=== PATIENT | male | born 1965 | race Caucasian/White ===

== ENCOUNTER 2017-10-13 06:58 | Day surgery (SDC) | payer OTHER ==
[~2017-10-13 06:58] MED LIST: Lidocaine 2% 5 ML SDV ONE; Propofol 200 MG/20 ML SDV ONE; fentaNYL 100 MCG/2 ML SDV ONE
--- NOTE | 2017-10-13 07:42 | PCM.PREANE ---
Preanesthetic Assessment - Anesthesia/Transfusion/Family Hx Anesthesia History: Prior Anesthesia Reaction Type of Anesthesia Reaction: Excessive Nausea/Vomiting Other Type of Anesthesia Reaction Comment: N&V, slow to wake Family History of Anesthesia Reaction: No Transfusion History: No Prior Transfusion(s) - Review of Systems General: No Symptoms Pulmonary: No Symptoms Cardiovascular: No Symptoms Gastrointestinal: No Symptoms Neurological: No Symptoms Other: Reports: None - Physical Assessment NPO Status Date: 10/12/17 O2 Sat by Pulse Oximetry: 96 Respiratory Rate: 16 Vital Signs: Last Vital Signs Temp 36.2 C 10/13/17 07:10 Pulse 55 L 10/13/17 07:10 Resp 16 10/13/17 07:10 BP 116/75 10/13/17 07:10 Pulse Ox 96 10/13/17 07:10 Height: 1.8 m Weight: 115.666 kg ASA Class: 2 Mental Status: Alert & Oriented x3 Airway Class: Mallampati = 1 Dentition: Reports: Normal Dentition ROM/Head Extension: Full Lungs: Clear to Auscultation, Normal Respiratory Effort Cardiovascular: Regular Rate, Regular Rhythm - Lab Values: Laboratory Last Values POC Glucose 125 mg/dL (60-110) H 10/13/17 07:22 - Allergies Allergies/Adverse Reactions: Allergies Allergy/AdvReac Type Severity Reaction Status Date / Time hydrocodone bitartrate Allergy Itching Verified 10/10/17 14:15 [From Lortab] tapentadol [From Nucynta] Allergy Rash Verified 10/10/17 14:15 tree nut Allergy Anaphylactic Verified 10/10/17 14:27 Shock - Acknowledgements Anesthesia Type Planned: MAC Pt an Appropriate Candidate for the Planned Anesthesia: Yes Alternatives and Risks of Anesthesia Discussed w Pt/Guardian: Yes Pt/Guardian Understands and Agrees with Anesthesia Plan: Yes Additional Comments: PMH: DM@, on insulin, [id number], HTN, HLD, PLAN: MAC PreAnesthesia Questionnaire Cardiovascular History: Reports: High Cholesterol, Hypertension Respiratory History: Reports: Asthma, Other (See Below) Other Respiratory History: allergy induced asthma (denies using inhaler) Genitourinary History: Musculoskeletal History: Reports: Fracture Neurological History: Reports: None Endocrine/Metabolic History: Reports: Diabetes, Type II, Obesity/BMI 30+ - Past Surgical History Head Surgeries/Procedures: Reports: None Neurological Surgical History: Reports: Lumbar Spine Other Neurological Surgeries/Procedures: hx back surgery Musculoskeletal Surgical History: Reports: Shoulder Surgery, Other (See Below) Other Musculoskeletal Surgeries/Procedures:: surgical tx of fx rt wrist, shoulder surgery - SUBSTANCE USE Smoking Status *Q: Never Smoker Recreational Drug Use History: No - HOME MEDS Home Medications: Home Meds Aspirin [Satinder Chewable Aspirin] 81 mg PO QAM 03/22/14 [History] atorvaSTATin [Lipitor] 80 mg PO BEDTIME 03/22/14 [History] metFORMIN [Glucophage] 1,000 mg PO BID 03/22/14 [History] Canagliflozin [Invokana] 300 mg PO DAILY 10/10/17 [History] Dextrose [Glucose] 1 tab.chew CHEW ASDIRECTED PRN 10/10/17 [History] EPINEPHrine [Epipen] 1 injection SUBCUT ASDIRECTED PRN 10/10/17 [History] Insulin Glarg,Human.Rec.Analog [Lantus Solostar] 50 units SUBCUT BID 10/10/17 [ History] Insulin Lispro [Humalog Kwikpen U-100] 15 units SUBCUT TIDMEALS 10/10/17 [ History] Multivitamin [Multivitamins] 1 tab PO DAILY 10/10/17 [History] Sildenafil Citrate [Sildenafil] 100 mg PO ASDIRECTED PRN 10/10/17 [History] amLODIPine Besylate/Benazepril [Amlodipine-Benazepril 10-20 MG] 1 tab PO DAILY 10/10/17 [History] traZODone HCl [Trazodone HCl] 0.5 tab PO BEDTIME PRN 10/10/17 [History] - CURRENT (IN HOUSE) MEDS Current Meds: Current Medications Lactated Ringer's (Ringers, Lactated) 1,000 mls @ 100 mls/hr IV ASDIRECTED KASI Discontinued Medications Fentanyl (Sublimaze) Confirm Administered Dose 100 mcg .ROUTE .STK-MED ONE Stop: 10/13/17 06:58 Lidocaine (Xylocaine-Mpf 2%) Confirm Administered Dose 5 ml .ROUTE .STK-MED ONE Stop: 10/13/17 06:58 Propofol (Diprivan 20 Ml) Confirm Administered Dose 400 mg .ROUTE .STK-MED ONE Stop: 10/13/17 06:58
[2017-10-13] MEDS ORDERED: Lactated Ringers 1,000 ML IV SCH ×2 (07:45→09:15)
[2017-10-13] MEDS ORDERED: Glycopyrrolate 0.2 MG/ML SDV ONE (08:37)
--- NOTE | 2017-10-13 09:04 | PCM.OPNOTE ---
- General Post-Op/Procedure Note Date of Surgery/Procedure: 10/13/17 Operative Procedure(s): Colonoscopy Pre Op Diagnosis: Desire for colorectal cancer screening Post-Op Diagnosis: No evidence of neoplasia Anesthesia Technique: MAC (ASA III) Primary Surgeon: Rashel Hickey Condition: Good Free Text/Narrative:: DICTATION [id number] CPT CODE 11625
--- NOTE | 2017-10-13 09:24 | PCM.POSTAN ---
POST ANESTHESIA ASSESSMENT - MENTAL STATUS Mental Status: Alert, Oriented - RESPIRATORY Respiratory Status: Respiratory Rate WNL, Airway Patent, O2 Saturation Stable - CARDIOVASCULAR CV Status: Pulse Rate WNL, Blood Pressure Stable - GASTROINTESTINAL GI Status: No Symptoms - PAIN Pain Score: 0 - POST OP HYDRATION Hydration Status: Adequate & Stable
--- NOTE | 2017-10-13 09:32 | PCM48HPAN ---
Post Anesthesia Note - EVALUATION WITHIN 48HRS OF ANESTHETIC Vital Signs in Normal Range: Yes Patient Participated in Evaluation: Yes Respiratory Function Stable: Yes Airway Patent: Yes Cardiovascular Function Stable: Yes Hydration Status Stable: Yes Pain Control Satisfactory: Yes Nausea and Vomiting Control Satisfactory: Yes Mental Status Recovered: Yes Resp Rate: 12
--- NOTE | 2017-10-13 09:36 | OR ---
SURGEON: Rashel Hickey M.D. DATE OF PROCEDURE: 10/13/2017 OPERATION PERFORMED: Colonoscopy. ANESTHESIA: MAC. [place] [employer] CLASSIFICATION: III. PREOPERATIVE DIAGNOSIS: Desire for colorectal cancer screening. POSTOPERATIVE DIAGNOSIS: No evidence of neoplasia. DESCRIPTION OF PROCEDURE: The patient was taken to the endoscopy room, positioned on the endoscopy table in the left lateral decubitus position. Time-out was called for appropriate identification of the patient and procedure. Monitored anesthesia care was provided. The colonoscope was inserted into the rectum and advanced with minimal difficulty to the cecum, where the colonoscope was retroflexed to visualize the ascending colon from below. The colonoscope was then straightened and slowly withdrawn. The cecum, ascending colon, hepatic flexure, transverse colon, splenic flexure, descending colon, sigmoid colon, and rectum were very well visualized. No tumors, polyps, diverticula, or angiodysplastic changes were noted. There was no evidence of inflammatory bowel disease. Once the colonoscope was withdrawn to the rectum, it was retroflexed to visualize the anal orifice from above. Again, no tumors or polyps were seen, and there were no acute hemorrhoidal changes. The colonoscope was then straightened, the rectum aspirated, and the colonoscope removed. The patient tolerated the procedure well and was taken to the recovery room in stable condition. PADDY ZENG /[id number]
== END 2017-10-13 09:50 | disposition home or self-care (01) ==
LOC: MW.SDS 06:58
PROVIDERS: ATTEND Surgery
DX: Z12.11 Encounter for screening for malignant neoplasm of colon (principal); J30.9 Allergic rhinitis, unspecified; I10 Essential (primary) hypertension; E11.9 Type 2 diabetes mellitus without complications; E78.00 Pure hypercholesterolemia, unspecified; E78.5 Hyperlipidemia, unspecified; E66.9 Obesity, unspecified; Z68.35 Body mass index [BMI] 35.0-35.9, adult; Z79.4 Long term (current) use of insulin; Z79.82 Long term (current) use of aspirin; Z79.899 Other long term (current) drug therapy; Z88.5 Allergy status to narcotic agent; Z91.048 Other nonmedicinal substance allergy status
CPT/HCPCS: 45378; 82962; J3010; J7120; J2704

== ENCOUNTER 2018-09-22 19:12 | Emergency (ER) | payer OTHER ==
[2018-09-22] MEDS ORDERED: Ketorolac 60 MG/2 ML SDV IM ONE (19:30)
--- NOTE | 2018-09-22 19:34 | EDM.PDOC ---
ED HPI GENERAL MEDICAL PROBLEM - General Chief Complaint: Back Pain or Injury Stated Complaint: HURT BACK Time Seen by Provider: 09/22/18 19:31 Source of Information: Reports: Patient - History of Present Illness INITIAL COMMENTS - FREE TEXT/NARRATIVE: HISTORY AND PHYSICAL: History of present illness: Patient presents with low back pain for 1 week, he has a history of low back pain approximately 16 years ago. Describes a procedure which sounds like epidural steroid injection or PEDRO/ IDET he states "they injected some medicine into my spine which decreased swelling of the disc " he is unsure of the exact procedure that occurred. Was performed 16 years prior in [facility]. No surgical scar is apparent. On Monday he had stepped in hole knee is been having trouble with ambulation or any movement since at rest pain is tolerable 2 out of 10 with any movement pain becomes unbearable required help to move about his house, did have to chiropractic adjustments one on Monday and again on or Monday which seems to have increased symptoms initially symptoms were better as the day went on symptoms were worse No footdrop saddle anesthesia or bowel or urine symptoms Review of systems: As per history of present illness and below otherwise all systems reviewed and negative. Past medical history: As per history of present illness and as reviewed below otherwise noncontributory. Surgical history: As per history of present illness and as reviewed below otherwise noncontributory. Social history: No reported history of drug or alcohol abuse. Family history: As per history of present illness and as reviewed below otherwise noncontributory. Physical exam: HEENT: Atraumatic, normocephalic, pupils reactive, negative for conjunctival pallor or scleral icterus, mucous membranes moist, throat clear, neck supple, nontender, trachea midline. Lungs: Clear to auscultation, breath sounds equal bilaterally, chest nontender. Heart: S1S2, regular, negative for clicks, rubs, or JVD. Abdomen: Soft, nondistended, nontender. Negative for masses or hepatosplenomegaly. Negative for costovertebral tenderness. Pelvis: Stable nontender. Genitourinary: Deferred. Rectal: Deferred. Extremities: Atraumatic, negative for cords or calf pain. Neurovascular unremarkable. Neuro: Awake, alert, oriented. Cranial nerves II through XII unremarkable. Cerebellum unremarkable. Motor and sensory unremarkable throughout. Exam nonfocal. Diagnostics: L- spine 3 views ] Therapeutics: [Toradol Norflex [place] severe pain Eat ice whichever gains most benefit Toradol Flexeri Work and office position as tolerated with Toradol only no driving on [place] or Flexeril l Lobe with primary care as scheduled for further restriction eval and treatment as needed ] Impression: [Low back pain Chronic history of low back pain with prior procedures] Definitive disposition and diagnosis as appropriate pending reevaluation and review of above. back Pain Score (Numeric/FACES): 4 - Related Data Allergies Allergy/AdvReac Type Severity Reaction Status Date / Time hydrocodone bitartrate Allergy Itching Verified 10/10/17 14:15 [From Lortab] tapentadol [From Nucynta] Allergy Rash Verified 10/10/17 14:15 tree nut Allergy Anaphylactic Verified 10/10/17 14:27 Shock Home Meds: Home Meds Ascorbate Calcium [Vitamin C] 500 mg PO DAILY 09/22/18 [History] Aspirin [Halfprin] 81 mg PO DAILY 09/22/18 [History] Canagliflozin [Invokana] 300 mg PO DAILY 09/22/18 [History] Cyanocobalamin (Vitamin B-12) [Vitamin B-12] 500 mcg PO DAILY 09/22/18 [History] Insulin Glarg,Human.Rec.Analog [Lantus Solostar] 50 units SUBCUT BID 09/22/18 [ History] amLODIPine Besylate/Benazepril [Amlodipine-Benazepril 10-20 MG] 10 mg PO DAILY 09/22/18 [History] atorvaSTATin [Lipitor] 80 mg PO DAILY 09/22/18 [History] metFORMIN HCl [Metformin HCl] 1,000 mg PO BID 09/22/18 [History] Past Medical History Cardiovascular History: Reports: High Cholesterol, Hypertension Respiratory History: Reports: Asthma, Other (See Below) Other Respiratory History: allergy induced asthma (denies using inhaler) Genitourinary History: Musculoskeletal History: Reports: Fracture Neurological History: Reports: None Psychiatric History: Reports: Depression Endocrine/Metabolic History: Reports: Diabetes, Type II, Obesity/BMI 30+ - Past Surgical History Head Surgeries/Procedures: Reports: None Neurological Surgical History: Reports: Lumbar Spine Other Neurological Surgeries/Procedures: hx back surgery Musculoskeletal Surgical History: Reports: Shoulder Surgery, Other (See Below) Other Musculoskeletal Surgeries/Procedures:: surgical tx of fx rt wrist, shoulder surgery, back surgery Social & Family History - Family History Family Medical History: Noncontributory - Tobacco Use Smoking Status *Q: Never Smoker - Recreational Drug Use Recreational Drug Use: No ED ROS GENERAL - Review of Systems Review Of Systems: See Below ED EXAM, GENERAL - Physical Exam Exam: See Below Course - Vital Signs Last Recorded V/S: Last Vital Signs Temp 97.1 F 09/22/18 19:23 Pulse 80 09/22/18 19:23 Resp 18 09/22/18 19:23 BP 165/86 H 09/22/18 19:23 Pulse Ox 94 L 09/22/18 19:23 - Orders/Labs/Meds Orders: Active Orders 24 hr Category Date Time Status Lumbar Spine 2 or 3V [CR] Stat Exams 09/22/18 19:31 Taken Orphenadrine [Norflex] Med 09/22/18 19:45 Active 60 mg IM Q12H Medication Orders Orphenadrine Citrate (Norflex) 60 mg IM Q12H KASI Last Admin: 09/22/18 19:41 Dose: 60 mg Meds: Medications Generic Name Dose Route Start Last Admin Trade Name Freq PRN Reason Stop Dose Admin Orphenadrine Citrate 60 mg 09/22/18 19:45 09/22/18 19:41 Norflex IM 60 mg Q12H KASI Administration Discontinued Medications Generic Name Dose Route Start Last Admin Trade Name Freq PRN Reason Stop Dose Admin Ketorolac Tromethamine 60 mg 09/22/18 19:30 09/22/18 19:38 Toradol IM 09/22/18 19:31 60 mg ONETIME ONE Administration Departure - Departure Time of Disposition: 20:39 Disposition: Home, Self-Care 01 Condition: Good Clinical Impression: Spasm of lumbar paraspinous muscle - Discharge Information Referrals: Gordon García MD [Primary Care Provider] - Forms: ED Department Discharge Additional Instructions: Medication as prescribed Return if symptoms persist or worsen No driving or work on [place] or [id number] Follow-up with primary care as scheduled on The following information is given to patients seen in the emergency department who are being discharged to home. This information is to outline your options for follow-up care. We provide all patients seen in our emergency department with a follow-up referral. The need for follow-up, as well as the timing and circumstances, are variable depending upon the specifics of your emergency department visit. If you don't have a primary care physician on staff, we will provide you with a referral. We always advise you to contact your personal physician following an emergency department visit to inform them of the circumstance of the visit and for follow-up with them and/or the need for any referrals to a consulting specialist. The emergency department will also refer you to a specialist when appropriate. This referral assures that you have the opportunity for follow-up care with a specialist. All of these measure are taken in an effort to provide you with optimal care, which includes your follow-up. Under all circumstances we always encourage you to contact your private physician who remains a resource for coordinating your care. When calling for follow-up care, please make the office aware that this follow-up is from your recent emergency room visit. If for any reason you are refused follow-up, please contact the [facility] emergency department at and asked to speak to the emergency department charge nurse. - My Orders Last 24 Hours: My Active Orders 09/22/18 19:31 Lumbar Spine 2 or 3V [CR] Stat 09/22/18 19:45 Orphenadrine [Norflex] 60 mg IM Q12H - Assessment/Plan Last 24 Hours: My Active Orders 09/22/18 19:31 Lumbar Spine 2 or 3V [CR] Stat 09/22/18 19:45 Orphenadrine [Norflex] 60 mg IM Q12H
--- NOTE | 2018-09-22 20:59 | CR ---
INDICATION: Pain. TECHNIQUE: Three views lumbar spine. FINDINGS: Mild thoracolumbar scar curve. Mild hypertrophic changes thoracic and lumbar spine. Mild to moderate narrowing of lumbar interspaces greatest at L4 and L5. Loss of the normal curvature of the sacrum. Mid and lower lumbar facet arthropathy. No acute fracture or subluxation in lumbar spine. Heterogeneous density of the sacrum on the lateral view could be correlated to views of the sacrum and coccyx bone. Remainder negative. Dictated by Mario Berg MD @ Sep 22 2018 8:54PM Signed by Dr. Mario Berg @ Sep 22 2018 8:56PM
== END 2018-09-22 20:45 | disposition home or self-care (01) ==
LOC: MW.ED 19:12
DX: M62.830 Muscle spasm of back (principal); M54.5 Low back pain; Z88.5 Allergy status to narcotic agent; Z88.8 Allergy status to other drugs, medicaments and biological substances
CPT/HCPCS: 72100; 96372; 99283; J1885; J2360

== ENCOUNTER 2019-12-17 13:50 | Emergency (ER) | payer OTHER ==
[2019-12-17] MEDS ORDERED: Sodium Chloride 0.9% 10 ML Syringe FLUSH PRN (13:57)
[2019-12-17] MEDS ORDERED: Sodium Chloride 0.9% 2.5 ML Syringe FLUSH PRN (13:57)
[2019-12-17] MEDS ORDERED: Aspirin 325 MG Tab PO ONE (14:08)
--- NOTE | 2019-12-17 14:20 | EDM.PDOC ---
ED HPI GENERAL MEDICAL PROBLEM - General Chief Complaint: Chest Pain Stated Complaint: CHEST PAIN Time Seen by Provider: 12/17/19 13:52 Source of Information: Reports: Patient, Old Records History Limitations: Reports: No Limitations - History of Present Illness INITIAL COMMENTS - FREE TEXT/NARRATIVE: 54-year-old male with a past medical history of hypertension, hyperlipidemia, type 2 diabetes mellitus presenting with chest pain. Patient reports a one- month history of intermittent chest discomfort and shortness of breath for which he is being worked up by his primary physician Dr. Watson, including stress testing and echocardiogram (echo was done yesterday). Today the presents emergency department complaining of substernal chest pain, onset around noon. Radiates to the bilateral shoulders and the left side of the neck. Patient states that this is the same pain pattern that he has intermittently been experiencing for the past month. Nothing makes it worse, pain improves with rest. Onset gradual. Currently rated as 8 out of 10. No self treatment prior to arrival. Denies any personal history of CAD, PCI, CABG, or venous thromboembolism. No recent fever, cough, hemoptysis, chest wall trauma, or emesis. Patient denies lower extremity pain or swelling, hemoptysis, recent surgery or immobilization or long travel, history of active malignancy, or hormonal medication/product usage. ROS: A 10-point review of systems was negative, except as noted in the HPI (or in the ROS section of this note). Past medical history: Reviewed, no additional pertinent history. Surgical history: Reviewed in system, no additional pertinent history. Social history: Reviewed in system, no additional pertinent history. Family history: Reviewed in system, no additional pertinent history. PHYSICAL EXAM Vital signs reviewed. Nursing notes reviewed. Constitutional: Awake, alert, non-distressed. Head: Normocephalic, atraumatic. Eyes: EOMI, conjunctiva normal, no discharge, no scleral icterus. Ears, Nose, Throat: External ears and nose normal, moist oral mucosa. Cardiovascular: 2+ radial pulses bilaterally, capillary refill less than 2 seconds. RRR no MRG. Trace bilateral lower extremity edema involving the shins. Pulmonary: normal work of breathing, no accessory muscle use. CTA BL. Abdomen/GI: Soft, nontender, nondistended, no guarding or rigidity, no masses. Musculoskeletal: No deformities. Integumentary: Appropriate color for ethnicity, warm, dry, no pallor or jaundice, no rash. Neurologic: Alert, answering questions appropriately, normal speech, no facial droop, moving all extremities well. Psychiatric: Appropriate mood and affect, normal thought process. right sided chest pain Pain Score (Numeric/FACES): 7 neck Pain Score (Numeric/FACES): 3 - Related Data Allergies Allergy/AdvReac Type Severity Reaction Status Date / Time hydrocodone bitartrate Allergy Itching Verified 12/17/19 13:51 [From Lortab] tapentadol [From Nucynta] Allergy Rash Verified 12/17/19 13:51 tree nut Allergy Anaphylactic Verified 12/17/19 13:51 Shock Home Meds: Home Meds Ascorbate Calcium [Vitamin C] 500 mg PO DAILY 09/22/18 [History] Aspirin [Halfprin] 81 mg PO DAILY 09/22/18 [History] Canagliflozin [Invokana] 300 mg PO DAILY 09/22/18 [History] Cyanocobalamin (Vitamin B-12) [Vitamin B-12] 500 mcg PO DAILY 09/22/18 [History] Insulin Glarg,Human.Rec.Analog [Lantus Solostar] 50 units SUBCUT BID 09/22/18 [History] amLODIPine Besylate/Benazepril [Amlodipine-Benazepril 10-20 MG] 10 mg PO DAILY 09/22/18 [History] atorvaSTATin [Lipitor] 80 mg PO DAILY 09/22/18 [History] metFORMIN HCl [Metformin HCl] 1,000 mg PO BID 09/22/18 [History] Past Medical History Cardiovascular History: Reports: High Cholesterol, Hypertension Respiratory History: Reports: Asthma, Other (See Below) Other Respiratory History: allergy induced asthma (denies using inhaler) Genitourinary History: Musculoskeletal History: Reports: Fracture Neurological History: Reports: None Psychiatric History: Reports: Depression Endocrine/Metabolic History: Reports: Diabetes, Type II, Obesity/BMI 30+ - Infectious Disease History Infectious Disease History: Reports: Chicken Pox - Past Surgical History Head Surgeries/Procedures: Reports: None Neurological Surgical History: Reports: Lumbar Spine Other Neurological Surgeries/Procedures: hx back surgery Musculoskeletal Surgical History: Reports: Shoulder Surgery, Other (See Below) Other Musculoskeletal Surgeries/Procedures:: surgical tx of fx rt wrist, shoulder surgery, back surgery Social & Family History - Family History Family Medical History: Noncontributory - Tobacco Use Smoking Status *Q: Never Smoker - Caffeine Use Caffeine Use: Reports: Soda, Tea - Recreational Drug Use Recreational Drug Use: No ED ROS GENERAL - Review of Systems Review Of Systems: See Below ED EXAM, GENERAL - Physical Exam Exam: See Below EKG INTERPRETATION EKG Interpretation Comments: 12-Lead ECG Interpretation Acquired: 1:54 PM Rhythm: Sinus rhythm Rate: 81 bpm [place]: Normal Intervals: Normal Ectopy: None Ischemic Changes: None apparent RV Strain: No obvious RV strain pattern. ST Segments/T-Waves: Subtle nondiagnostic ST depression in leads I and aVL, could be due to wandering baseline. Interpretation: Abnormal ECG, will repeat. Course - Vital Signs Text/Narrative:: Patient hemodynamically stable, afebrile, well-appearing, looks nontoxic. Differential diagnosis includes but is not limited to: ACS, pulmonary embolism, aortic dissection, acute systolic heart failure, pneumonia, pneumothorax, pericardial effusion, pleural effusion, pericarditis, endocarditis, esophageal rupture, GERD, drug-induced chest pain, chest wall pain, and many others. Labs show normal cell lines. Negative troponin x2. Normal electrolytes and renal function. Mild hyperglycemia. Chest x-rays are clear. Twelve-lead EKG was initially concerning for some subtle ST depression (nondiagnostic) in the limb leads, but this resolved on a repeat and could be due to wandering baseline. I considered a multitude of differential diagnoses for the patient's chest pain, including: Acute coronary syndrome: the ECGs do not demonstrate acute ischemia (new T-wave inversions, persistent ST segment deviation) and troponin testing is negative x2. They have a HEART pathway score of 2. Under the 2015 HEART pathway study, risk of MACE at 30 days with a HEART score 0-3 and a second negative 3-hour troponin is 0.8% (trevor Guerrero PMID: [id number]) Pulmonary embolism: Low clinical suspicion. There is no resting tachycardia, pleuritic pain component, and no clinical sign of DVT on physical examination. Thoracic aortic dissection: equal radial pulses, no radiation of pain to the back, no history of connective tissue disease. The mediastinum is not widened on x-rays. Acute decompensated heart failure/pulmonary edema: no significant respiratory distress (hypoxia, tachypnea), no pitting lower extremity edema, no evidence of edema on chest x-rays, no JVD. Unfortunately, I cannot review the echocardiogram results from yesterday. Pneumothorax/pleural effusion: no evidence of such on chest x-ray, no fever or sputum production, no tachypnea or hypoxia. Pericardial effusion: no friction rub, no JVD. [place]/pericarditis: no fever, no friction rub, negative troponin testing, non- diagnostic ECG. Critical aortic stenosis: no history of aortic stenosis, no significant murmur. Endocarditis: no fever, no splinter hemorrhages noted, no murmur, no history of IV drug use, non-toxic appearing. Esophageal rupture: no fever, no history of recurrent emesis, no subcutaneous emphysema to the neck or chest, non-toxic appearing. Zoster/shingles: no evidence of rash to chest wall. GERD, musculoskeletal chest pain, pleurisy, non-specific chest pain, et cetera. The patient presented with chest pain of uncertain etiology. Based on their history, lab analysis, and ECG, I see no evidence at this time for a malignant etiology for the patient's chest pain. 1543: Repeat ECG shows that the non-diagnostic ST-segment depression seen on 1354 ECG has resolved. Patient reports chest pain is improving. The etiology of the patient's complaint is not entirely clear but there is no evidence of an acute emergency medical condition that warrants admission the hospital, further testing, or specialist consultation. The patient is being closely monitored by their primary physician for this chest discomfort and shortness of breath which has been intermittent for the past month. There is no objective evidence of myocardial ischemia at this point. We will plan to disch arge the patient home and have him follow-up with his primary doctor in the next 2 to 3 days for reevaluation. Plan: Patient is stable to discharge home with outpatient primary care clinic follow-up. Strict emergency department return precautions were provided, patient indicated understanding. All questions were answered prior to departure. Discharged in good condition. HEART Pathway for Early Discharge in Acute Chest Pain RESULT SUMMARY: 2 points HEART Pathway Score Low risk 0.9-1.7% 30-day MACE Repeat troponin at 3 hours and if negative, discharge home with outpatient follow-up. INPUTS: History > 0 = Slightly suspicious EKG > 0 = Normal Age > 1 = 45-64 Risk factors > 1 = 1-2 risk factors Initial troponin > 0 = ?normal limit Last Recorded V/S: Last Vital Signs Temp 36.2 C 12/17/19 18:05 Pulse 80 12/17/19 18:05 Resp 17 12/17/19 18:05 BP 136/85 12/17/19 18:05 Pulse Ox 96 12/17/19 18:05 - Orders/Labs/Meds Orders: Active Orders 24 hr Category Date Time Status Saline Lock Insert [OM.PC] Stat Oth 12/17/19 13:57 Ordered Labs: Laboratory Tests 12/17/19 12/17/19 12/17/19 Range/Units 13:55 13:55 16:53 WBC 6.39 (4.0-11.0) K/uL RBC 5.18 (4.50-5.90) M/uL Hgb 15.9 (13.0-17.0) g/dL Hct 46.3 (38.0-50.0) % MCV 89.4 (80.0-98.0) fL MCH 30.7 (27.0-32.0) pg MCHC 34.3 (31.0-37.0) g/dL RDW Std Deviation 47.3 (28.0-62.0) fl RDW Coeff of Saima 15 (11.0-15.0) % Plt Count 163 (150-400) K/uL MPV 10.60 (7.40-12.00) fL Neut % (Auto) 69.5 (48.0-80.0) % Lymph % (Auto) 17.7 (16.0-40.0) % [place] % (Auto) 7.0 (0.0-15.0) % Eos % (Auto) 5.3 (0.0-7.0) % Baso % (Auto) 0.5 (0.0-1.5) % Neut # (Auto) 4.4 (1.4-5.7) K/uL Lymph # (Auto) 1.1 (0.6-2.4) K/uL [place] # (Auto) 0.5 (0.0-0.8) K/uL Eos # (Auto) 0.3 (0.0-0.7) K/uL Baso # (Auto) 0.0 (0.0-0.1) K/uL Nucleated RBC % 0.0 /100WBC Nucleated RBCs # 0 K/uL Sodium 141 (136-148) mmol/L Potassium 3.9 (3.5-5.1) mmol/L Chloride 105 (98-107) mmol/L Carbon Dioxide 25.2 (21.0-32.0) mmol/L BUN 17 (7.0-18.0) mg/dL Creatinine 1.1 (0.8-1.3) mg/dL Est Cr Clr Drug Dosing 81.11 mL/min Estimated GFR (MDRD) > 60.0 ml/min Glucose 116 H (74-106) mg/dL Calcium 9.3 (8.5-10.1) mg/dL Total Bilirubin 0.5 (0.2-1.0) mg/dL AST 43 H (15-37) IU/L ALT 69 H (14-63) IU/L Alkaline Phosphatase 63 (46-116) U/L Troponin I < 0.050 < 0.050 (0.000-0.056) ng/mL Total Protein 7.5 (6.4-8.2) g/dL Albumin 4.3 (3.4-5.0) g/dL Globulin 3.2 (2.6-4.0) g/dL Albumin/Globulin Ratio 1.3 (0.9-1.6) Meds: Medications Discontinued Medications Generic Name Dose Route Start Last Admin Trade Name Freq PRN Reason Stop Dose Admin Aspirin 325 mg 12/17/19 14:08 12/17/19 14:15 Aspirin PO 12/17/19 14:09 325 mg ONETIME ONE Administration Sodium Chloride 10 ml 12/17/19 13:57 12/17/19 14:16 Saline Flush FLUSH 10 ml ASDIRECTED PRN Administration Keep Vein Open Sodium Chloride 2.5 ml 12/17/19 13:57 12/17/19 14:16 Saline Flush FLUSH 2.5 ml ASDIRECTED PRN Administration Keep Vein Open Departure - Departure Time of Disposition: 17:49 Disposition: Home, Self-Care 01 Condition: Good Clinical Impression: Atypical chest pain Dyspnea Qualifiers: Dyspnea type: unspecified Qualified Code(s): R06.00 - Dyspnea, unspecified Instructions: Nonspecific Chest Pain, Adult, Shortness of Breath, Adult Referrals: Ministerio Watson MD [Primary Care Provider] - 3 Days (For follow-up of symptoms.) Forms: ED Department Discharge Additional Instructions: You were seen in the emergency department for chest pain and shortness of breath. Your blood work shows no evidence of a heart attack. Your x-rays are clear. Your EKG does not show evidence of a blocked artery. Your blood work is reassuring. At this point I do not have a clear explanation about what is causing your symptoms but I do want you to follow-up closely with your primary doctor the next 2 to 3 days for reevaluation. If your chest pain worsens, if you have more trouble breathing, or if anything changes or worsens and you are concerned, you should call 911 or come back to the ER immediately. Please return the emergency department immediately if your symptoms worsen or if you feel worse. Thank you for choosing the [facility] emergency department in [place] for your medical needs today. It was a pleasure caring for you. The following information is given to patients seen in the emergency department who are being discharged. This information is to outline your options for follow-up care. We provide all patients seen in our emergency department with a follow-up referral. The need for follow-up, as well as the timing and circumstances, are variable depending upon the specifics of your emergency department visit. If you don't have a primary care physician on staff, we will provide you with a referral. We always advise you to contact your personal physician following an emergency department visit to inform them of the circumstance of the visit and for follow-up with them and/or the need for any referrals to a consulting specialist. The emergency department will also refer you to a specialist when appropriate. This referral assures that you have the opportunity for follow-up care with a specialist. All of these measure are taken in an effort to provide you with optimal care, which includes your follow-up. Under all circumstances we always encourage you to contact your private physician who remains a resource for coordinating your care. When calling for follow-up care, please make the office aware that this follow-up is from your recent emergency room visit. If for any reason you are refused follow-up, please contact the [facility] Emergency Department at and asked to speak to the emergency department charge nurse. If you do not have a primary care physician that is caring for you, you can contact these clinics below to set up an appointment to establish care: [facility] [address] [place] [id number] [facility] [address] [place] [id number] Sepsis Event Note (ED) - Evaluation Sepsis Screening Result: No Definite Risk - Focused Exam Vital Signs: Vital Signs Temp Pulse Resp BP Pulse Ox 12/17/19 18:05 36.2 C 80 17 136/85 96 12/17/19 16:56 85 17 125/73 95 12/17/19 15:45 81 16 153/77 H 96 12/17/19 14:42 85 17 131/78 95 12/17/19 13:52 36.6 C 20 152/80 H - My Orders Last 24 Hours: My Active Orders 12/17/19 13:57 Saline Lock Insert [OM.PC] Stat - Assessment/Plan Last 24 Hours: My Active Orders 12/17/19 13:57 Saline Lock Insert [OM.PC] Stat
[2019-12-17 14:39] LABS: BLOOD UREA NITROGEN,BUN 17 mg/dL (7.0-18.0); CARBON DIOXIDE,CO2 25.2 mmol/L (21.0-32.0); CHLORIDE,CL 105 mmol/L (98-107); GLUCOSE RANDOM 116 mg/dL (74-106); POTASSIUM,K 3.9 mmol/L (3.5-5.1); SODIUM,NA 141 mmol/L (136-148)
--- NOTE | 2019-12-17 16:07 | CR ---
Chest: 2 views of the chest were obtained. Comparison: Prior chest x-ray of 03/22/14. Heart size and mediastinum are normal. Lungs are clear with no acute parenchymal change. Slight degenerative endplate spurring is noted within the spine. Impression: 1. Nothing acute is seen on 2 view chest x-ray. Diagnostic code #2 This report was dictated in MDT
== END 2019-12-17 18:05 | disposition home or self-care (01) ==
LOC: MW.ED 13:50
DX: R07.89 Other chest pain (principal); R06.02 Shortness of breath; I10 Essential (primary) hypertension; E11.9 Type 2 diabetes mellitus without complications; E78.5 Hyperlipidemia, unspecified; J45.909 Unspecified asthma, uncomplicated; E66.9 Obesity, unspecified; Z68.38 Body mass index [BMI] 38.0-38.9, adult; Z88.5 Allergy status to narcotic agent; Z91.018 Allergy to other foods; Z79.82 Long term (current) use of aspirin; Z79.4 Long term (current) use of insulin; Z79.899 Other long term (current) drug therapy
CPT/HCPCS: 36415; 71046; 80053; 84484; 85025; 93005; 99285; A9270; 99283

== ENCOUNTER 2022-02-26 11:20 | Emergency (ER) | payer OTHER ==
[2022-02-26] MEDS ORDERED: Ketorolac 60 MG/2 ML SDV IM ONE (12:10)
[2022-02-26] MEDS ORDERED: Diazepam 2 MG Tab PO ONE ×2 (12:10)
[2022-02-26] MEDS ORDERED: Orphenadrine 60 MG/2 ML Inj IM ONE (12:10)
== END 2022-02-26 12:55 | disposition home or self-care (01) ==
LOC: MW.ED 11:20
DX: M54.50 Low back pain, unspecified (principal); E78.00 Pure hypercholesterolemia, unspecified; I10 Essential (primary) hypertension; E11.9 Type 2 diabetes mellitus without complications; E66.9 Obesity, unspecified; Z68.38 Body mass index [BMI] 38.0-38.9, adult; Z88.5 Allergy status to narcotic agent; Z88.8 Allergy status to other drugs, medicaments and biological substances; Z79.4 Long term (current) use of insulin; Z79.899 Other long term (current) drug therapy; Z79.82 Long term (current) use of aspirin
CPT/HCPCS: 96372; 99283; A9270; J1885; J2360

== ENCOUNTER 2022-10-24 09:27 | Emergency (ER) | payer OTHER ==
[2022-10-24] MEDS ORDERED: Aspirin 81 MG Tab.Chew PO ONE ×2 (09:42→09:56)
[2022-10-24 10:01] LABS: BASOPHILS ABSOLUTE AUTO 0.1 K/uL (0.0-0.1); BASOPHILS PERCENT AUTO 0.6 % (0.0-1.5); EOSINOPHILS ABSOLUTE AUTO 0.2 K/uL (0.0-0.7); EOSINOPHILS PERCENT AUTO 2.2 % (0.0-7.0); HEMATOCRIT 48.3 % (38.0-50.0); HEMOGLOBIN 16.3 g/dL (13.0-17.0); LYMPHOCYTES PERCENT AUTO 10.8 % (16.0-40.0); MEAN CORPUSCULAR HEMOGLOBIN 30.8 pg (27.0-32.0); MEAN CORPUSCULAR HGB CONC 33.7 g/dL (31.0-37.0); MEAN CORPUSCULAR VOLUME 91.1 fL (80.0-98.0); MONOCYTES ABSOLUTE AUTO 0.6 K/uL (0.0-0.8); MONOCYTES PERCENT AUTO 6.6 % (0.0-15.0); NEUTROPHILS ABSOLUTE AUTO 7.2 K/uL (1.4-5.7); NEUTROPHILS PERCENT AUTO 79.8 % (48.0-80.0); NRBC ABSOLUTE 0 K/uL; PLATELET COUNT,PLT 166 K/uL (150-400); WHITE BLOOD CELL COUNT,WBC 9.04 K/uL (4.0-11.0)
[2022-10-24 10:19] LABS: INR 1.06 (0.86-1.11); PTT,PARTIAL THROMBOPLSTIN TIME 26.4 SEC (23.9-30.7)
[2022-10-24 10:28] LABS: A/G RATIO 1.2 (0.9-1.6); CALCIUM 9.3 mg/dL (8.5-10.1); CREATININE 1.2 mg/dL (0.8-1.3); EST CRCL DRUG DOSING (CG) 74.08 mL/min; POTASSIUM,K 4.1 mmol/L (3.5-5.1); PROTEIN TOTAL,TP 7.3 g/dL (6.4-8.2)
== END 2022-10-24 13:21 | disposition home or self-care (01) ==
LOC: MW.ED 09:27
DX: R07.89 Other chest pain (principal); E11.9 Type 2 diabetes mellitus without complications; I10 Essential (primary) hypertension; J45.909 Unspecified asthma, uncomplicated; E78.00 Pure hypercholesterolemia, unspecified; E66.9 Obesity, unspecified; Z68.34 Body mass index [BMI] 34.0-34.9, adult; Z88.5 Allergy status to narcotic agent; Z91.018 Allergy to other foods; Z88.8 Allergy status to other drugs, medicaments and biological substances
CPT/HCPCS: 36415; 71045; 80053; 83690; 84484; 85025; 85610; 85730; 93005; 99285; A9270; 93010